=== PATIENT | female | born 1985 | race Caucasian/White ===

== ENCOUNTER 2016-05-31 14:48 | Emergency (ER) | payer BC | END 2016-05-31 22:14 | disposition home or self-care (01) | LOC: D.ER 14:48 | DX: M54.5 Low back pain (principal); E03.9 Hypothyroidism, unspecified ==

== ENCOUNTER 2017-02-18 08:27 | Emergency (ER) | payer MEDICAID | END 2017-02-18 09:17 | disposition home or self-care (01) | LOC: D.ER 08:27 | DX: M54.5 Low back pain (principal); G89.29 Other chronic pain ==

== ENCOUNTER 2017-06-09 03:38 | Emergency (ER) | payer MEDICAID | END 2017-06-09 05:50 | disposition home or self-care (01) | LOC: D.ER 03:38 | DX: J11.1 Influenza due to unidentified influenza virus with other respiratory manifestations (principal); R05 Cough; R50.9 Fever, unspecified ==

== ENCOUNTER 2018-04-25 10:37 | Emergency (ER) | payer MEDICAID ==
[~2018-04-25] VITALS: Ht 172.7 cm; Wt 90.9 kg
[2018-04-25 10:41] VITALS: Ht 172.7 cm; Wt 90.9 kg
[2018-04-25] MEDS ORDERED: ZANAFLEX4 MG PO (10:42)
[2018-04-25] MEDS ORDERED: ULTRAM50 MG PO (10:42)
[2018-04-25] MEDS ORDERED: LEVOTHYROXINE50 MCG PO (10:42)
[2018-04-25 12:05] VITALS: BP 121/74
== END 2018-04-25 12:05 | disposition home or self-care (01) ==
LOC: D.ER 10:37
DX: G43.909 Migraine, unspecified, not intractable, without status migrainosus (principal); M54.5 Low back pain

== ENCOUNTER 2018-04-25 15:11 | Emergency (ER) | payer MEDICAID ==
[2018-04-25 10:41] VITALS: BMI 30.4
[~2018-04-25 15:11] MED LIST: LEVOTHYROXINE50 MCG PO; ULTRAM50 MG PO; ZANAFLEX4 MG PO
== END 2018-04-25 16:30 | disposition left against medical advice (07) ==
LOC: D.ER 15:11
DX: G43.909 Migraine, unspecified, not intractable, without status migrainosus (principal); M54.5 Low back pain